=== PATIENT | male | born 1945 | race Caucasian/White ===

== ENCOUNTER → 2023-05-18 | Outpatient (CLI) | payer MEDICARE ==
--- NOTE | 2023-05-18 09:57 | MR ---
EXAMINATION TYPE: MR shoulder RT wo con DATE OF EXAM: 05/18/2023 COMPARISON: None HISTORY: Rt shoulder pain TECHNIQUE: Multiplanar, multisequence imaging of the right shoulder is performed without contrast. FINDINGS: Rotator Cuff: Atrophic changes of the supraspinatus spinatus musculature. There is incomplete through thickness tear of the distal margins of both the infraspinatus and supraspinatus tendons. Subscapularis demonstrates thickening at its insertion with edema compatible with tendinosis. Acromioclavicular Joint: There is hypertrophic change of the AC joint. No contact upon the rotator cu ff musculature. Glenohumeral Joint: There is narrowing of the glenohumeral joint there is a high riding humeral head compatible with a bone findings of rotator cuff tear Labrum: The labrum appears grossly intact given limitation of non-arthrogram study. Biceps Tendon: The long head of biceps is in normal location within bicipital groove. Increased fluid surrounding the bicipital tendon compatible with tendinosis. Biceps anchor is intact. Bone marrow signal: There are cystic changes involving the humeral head there is nonspecific marrow e ludivina likely reactive. Marrow edema is seen in the acromion and humeral head. Additionally cystic tim ges are most likely in the basis of chronic impingement. Other: No additional significant abnormality is appreciated. IMPRESSION: 1. Complete true thickness tears infraspinatus and supraspinatus tendons with atrophic change of the musculature. 2. Bicipital tendinosis. 3. 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 4. Thickening and increased signal insertion subscapularis tendon compatible with tendinopathy.
== END | disposition home or self-care (01) ==
LOC: RADMRIMAIN 08:41
PROVIDERS: ATTEND Orthopaedic Surgery
DX: M19.011 Primary osteoarthritis, right shoulder (principal); M75.121 Complete rotator cuff tear or rupture of right shoulder, not specified as traumatic; M75.21 Bicipital tendinitis, right shoulder; M67.813 Other specified disorders of tendon, right shoulder; M62.81 Muscle weakness (generalized)